=== PATIENT | male | born 1960 | race Caucasian/White ===

== ENCOUNTER 2016-11-27 20:39 | Emergency (ER) | payer OTHER ==
[~2016-11-27] VITALS: Ht 177.8 cm; Wt 70.0 kg
[~2016-11-27 20:39] MED LIST: ASPI81TA82 PO; HYDR-3111 PO; PERC5TAB12 PO; TAMS0.4C67 PO
[2016-11-27 20:45] VITALS: BP 145/92; PULSE 71; RESP 14; TEMP 98.3; O2SAT 100
[2016-11-27 21:00] VITALS: BP 164/96; PULSE 67; RESP 18; O2SAT 99
[2016-11-27] MEDS ORDERED: SODIUM CHLOR 0.9% 1000 ML INJ 1,000 ML IV ONE (21:06)
[2016-11-27 21:08] LABS: BLOOD, URINE LARGE (NEG); GLUCOSE,URINE NEG (NEG); KETONE, URINE NEG (NEG); NITRITE,URINE NEG (NEG); PH, URINE 5.5 (5.0-8.5)
[2016-11-27 21:14] LABS: URINE COLOR YELLOW (YELLW/STRAW)
[2016-11-27 21:15] LABS: MUCUS URINE OCC /lpf (OCC)
[2016-11-27] MEDS ORDERED: PERC5TAB12 PO (21:15)
[2016-11-27] MEDS ORDERED: ONDANSETRON HCL 4 MG/2 ML VIAL IVP ONE (21:15)
[2016-11-27] MEDS ORDERED: KETOROLAC TROMETHAMINE 30 MG/ML (IVP) VIAL IVP ONE (21:15)
[2016-11-27] MEDS ORDERED: TAMS5CAP PO (21:15)
[2016-11-27] MEDS ORDERED: SODIUM CHLORIDE 0.9% FLUSH 10 ML FLUSH IVF PRN (21:15)
[2016-11-27] MEDS ORDERED: ASPI1TAB69 PO (21:15)
[2016-11-27] MEDS ORDERED: HYDROmorphone HCL PF 1 MG/ML VIAL IVS ONE (21:15)
[2016-11-27 21:16] LABS: COMMENT (UR) CULT NOT INDICATED; CULTURE IF INDICATED CULT NOT INDICATED; SQUAMOUS EPITHELIAL CELL URINE 0-5 /hpf (0-5)
[2016-11-27 21:28] LABS: AUTOMATED NEUTROPHIL # 9.9 TH/MM3 (1.8-7.7); BASOPHIL # 0.3 TH/MM3 (0-0.2); BASOPHIL % 1.9 % (0.0-2.0); EOSINOPHIL # 0.2 TH/MM3 (0-0.4); EOSINOPHIL % 1.4 % (0.0-4.0); LYMPH % 19.3 % (9.0-44.0); LYMPHOCYTE # 2.9 TH/MM3 (1.0-4.8); MEAN CELL VOLUME 91.4 FL (80.0-100.0); MEAN CORPUSCULAR HEMOGLOBIN 30.5 PG (27.0-34.0); MEAN CORPUSCULAR HGB CONC 33.3 % (32.0-36.0); MONO % 13.4 % (0.0-8.0); PLATELET COUNT 318 TH/MM3 (150-450); RED BLOOD COUNT 4.38 MIL/MM3 (4.50-5.90); RED CELL DISTRIBUTION WIDTH 13.3 % (11.6-17.2); WHITE BLOOD COUNT 15.3 TH/MM3 (4.0-11.0)
[2016-11-27 21:29] LABS: HEMO FLAGS DIFF FINAL
[2016-11-27 21:41] LABS: POTASSIUM 3.7 MEQ/L (3.5-5.1)
[2016-11-27 21:44] LABS: BICARBONATE 29.7 MEQ/L (21.0-32.0)
--- NOTE | 2016-11-27 21:48 | RADHPO ---
EXAM DATE/TIME: 11/27/2016 21:14 [place] COMPARISON: CT ABDOMEN & PELVIS W/O CONTRAST, November 29, 2015, 5:27. INDICATIONS : Right flank pain. ORAL CONTRAST: No oral contrast ingested. RADIATION DOSE: 9.31 CTDIvol (mGy) MEDICAL HISTORY : None SURGICAL HISTORY : Splenectomy. ENCOUNTER: Initial ACUITY: 1 day PAIN SCALE: 5/10 LOCATION: Right flank TECHNIQUE: Volumetric scanning of the abdomen and pelvis was performed. Using automated exposure control and ad justment of the mA and/or kV according to patient size, radiation dose was kept as low as reasonably achievable to obtain optimal diagnostic quality images. FINDINGS: The lung base is are clear. The liver spleen pancreas and adrenals unremarkable Right kidney: There multiple small 2-3 mm calcifications in the right kidney. There is mild dilatation of the prox imal right ureter with a 3 mm stone at the right ureterovesical junction. There multiple calcifications in the left kidney without perinephric stranding or obstruction. Pelvic contents are otherwise unremarkable. Review of bone windows reveals only degenerative changes. CONCLUSION: 3 mm obstructing stone right ureterovesical junction. Multiple other small 2-3 mm stones are seen in both kidneys.. Jeremias Hill MD FACR on November 27, 2016 at 21:40 Board Certified Radiologist. This report was verified electronically.
[2016-11-27 22:00] VITALS: BP 147/87; PULSE 72; RESP 18; O2SAT 97
[2016-11-27 22:12] VITALS: RESP 17
[2016-11-27] MEDS ORDERED: TAMSULOSIN HCL 0.4 MG CAP PO ONE (22:30)
[2016-11-27] MEDS ORDERED: ZOFR4TAB3 SL (22:31)
[2016-11-27] MEDS ORDERED: PERC7.5T13 PO (22:31)
[2016-11-27] MEDS ORDERED: IBUP-232 PO (22:33)
--- NOTE | 2016-11-27 22:40 | PD ---
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 The patient took some Percocet at home which were left over from his last episode of urinary stones a year ago. He still complains of pain without nausea.. The pain is in the right flank, right UVJ area. He denies any fever. PFSH Past Medical History Diminished Hearing: No Kidney Stones: Yes Immunizations Current: Yes Tetanus Vaccination: > 5 Years Influenza Vaccination: Yes Past Surgical History Other Surgery: Yes (SPLENECTOMY) Social History Alcohol Use: Yes (SOCIAL) Tobacco Use: No Substance Use: No Allergies-Medications (Allergen,Severity, Reaction): Coded Allergies: No Known Allergies (Unverified , 11/27/16) Reported Meds & Prescriptions Reported Meds & Active Scripts Active Ibuprofen 600 Mg Tab 600 Mg PO TID Zofran Odt (Ondansetron Odt) 4 Mg Tab 4 Mg SL Q6HR PRN Percocet (Oxycodone-Acetaminophen) 7.5-325 mg Tab 1 Tab PO Q4H PRN Reported Percocet (Oxycodone-Acetaminophen) 5-325 mg Tab 1 Tab PO Q4H PRN Flomax (Tamsulosin HCl) 0.4 Mg Cap 0.4 Mg PO HS Aspirin 81 Mg Tabdr 81 Mg PO DAILY Review of Systems Except as stated in HPI: all other systems reviewed are Neg Physical Exam Narrative GENERAL: The patient is alert, oriented 3 in moderate apparent distress with his right ureteral stone. His vital signs show blood pressure 145/92 but are otherwise normal. SKIN: Focused skin assessment warm/dry. HEAD: Atraumatic. Normocephalic. EYES: Pupils equal and round. No scleral icterus. No injection or drainage. ENT: No nasal bleeding or discharge. Mucous membranes pink and moist. NECK: Trachea midline. No JVD. CARDIOVASCULAR: Regular rate and rhythm. No murmur appreciated. RESPIRATORY: No accessory muscle use. Clear to auscultation. Breath sounds equal bilaterally. GASTROINTESTINAL: Abdomen soft, with slight tenderness/discomfort over the right UVJ and some minimal discomfort over the right flank to direct palpation, nondistended. Hepatic and splenic margins not palpable. No guarding or rebound is present. MUSCULOSKELETAL: No obvious deformities. No clubbing. No cyanosis. No edema. NEUROLOGICAL: Awake and alert. No obvious cranial nerve deficits. Motor grossly within normal limits. Normal speech. PSYCHIATRIC: Appropriate mood and affect; insight and judgment normal. Data Data Last Documented VS Vital Signs Date Time Temp Pulse Resp B/P Pulse Ox O2 Delivery O2 Flow Rate FiO2 11/27/16 22:12 17 11/27/16 22:00 72 147/87 97 Room Air 11/27/16 20:45 98.3 Orders Urinalysis - C+S If Indicated (11/27/16 20:53) Complete Blood Count With Diff (11/27/16 21:06) Basic Metabolic Panel (Bmp) (11/27/16 21:06) Ct Abd/Pel W/O Iv Contrast (11/27/16 21:06) Ecg Monitoring (11/27/16 21:06) Iv Access Insert/Monitor (11/27/16 21:06) Ketorolac Inj (Toradol Inj) (11/27/16 21:15) Ondansetron Inj (Zofran Inj) (11/27/16 21:15) Sodium Chloride 0.9% Flush (Ns Flush) (11/27/16 21:15) Sodium Chlor 0.9% 1000 Ml Inj (Ns 1000 M (11/27/16 21:06) Hydromorphone Pf Inj (Dilaudid Pf Inj) (11/27/16 21:15) Tamsulosin (Flomax) (11/27/16 22:30) Labs Laboratory Tests Test 11/27/16 11/27/16 21:00 21:15 Urine Color YELLOW Urine Turbidity SLIGHT Urine pH 5.5 Urine Specific [place] 1.009 Urine Protein NEG mg/dL Urine Glucose (UA) NEG mg/dL Urine Ketones NEG mg/dL Urine Occult Blood LARGE Urine Nitrite NEG Urine Bilirubin NEG Urine Leukocyte Esterase NEG Urine RBC 50-99 /hpf Urine WBC 3-5 /hpf Urine Squamous Epithelial 0-5 /hpf Cells Urine Mucus OCC /lpf Microscopic Urinalysis Comment CULT NOT INDICATED White Blood Count 15.3 TH/MM3 Red Blood Count 4.38 MIL/MM3 Hemoglobin 13.4 GM/DL Hematocrit 40.0 % Mean Corpuscular Volume 91.4 FL Mean Corpuscular Hemoglobin 30.5 PG Mean Corpuscular Hemoglobin 33.3 % Concent Red Cell Distribution Width 13.3 % Platelet Count 318 TH/MM3 Mean Platelet Volume 8.2 FL Neutrophils (%) (Auto) 64.0 % Lymphocytes (%) (Auto) 19.3 % Monocytes (%) (Auto) 13.4 % Eosinophils (%) (Auto) 1.4 % Basophils (%) (Auto) 1.9 % Neutrophils # (Auto) 9.9 TH/MM3 Lymphocytes # (Auto) 2.9 TH/MM3 Monocytes # (Auto) 2.0 TH/MM3 Eosinophils # (Auto) 0.2 TH/MM3 Basophils # (Auto) 0.3 TH/MM3 CBC Comment DIFF FINAL Differential Comment Sodium Level 138 MEQ/L Potassium Level 3.7 MEQ/L Chloride Level 101 MEQ/L Carbon Dioxide Level 29.7 MEQ/L Anion Gap 7 MEQ/L Blood Urea Nitrogen 15 MG/DL Creatinine 2.00 MG/DL Estimat Glomerular Filtration 35 ML/MIN Rate Random Glucose 101 MG/DL Calcium Level 8.6 MG/DL MDM Medical Decision Making Medical Screen Exam Complete: Yes Emergency Medical Condition: Yes Medical Record Reviewed: Yes Interpretation(s) The CBC shows a white count of 15,300 but is otherwise unremarkable. The basic metabolic profile shows a creatinine of 2 with GFR 35 but is otherwise normal. The CT scan shows a 3 mm right ureteral stone at the right UVJ. There are several 2-3 mm stones in the right kidney which are nonobstructing. Differential Diagnosis Right ureteral stone, urinary tract infection, cholecystitis, colitis, appendicitisunlikely, infected stone Narrative Course The patient has a right ureteral stone. His creatinine is elevated, possibly because of the obstruction. There is no evidence of infection in the urine or infected stone. Plan: He will be given prescriptions for ibuprofen, Zofran and Percocet. He states he has plenty of Flomax at home. Diagnosis Primary Impression: Right ureteral calculus Additional Instructions: As you already know, drink plenty of liquids and take the Percocet if you need to. I hope this stone has already been passed, you don't have any tenderness in the area any more. It is probably a good idea to check her creatinine to see if it returns to normal. Med/Other Pt SpecificInfo: Prescription(s) given Scripts Ibuprofen 600 Mg [id number] Mg PO TID #33 TAB Ref 0 Prov:Fred Sanchez MD 11/27/16 Ondansetron Odt (Zofran Odt)4 Mg Tab4 Mg SL Q6HR PRN (Nausea/Vomiting) #20 TAB Ref 0 Prov:Fred Sanchez MD 11/27/16 Oxycodone-Acetaminophen (Percocet)7.5-325 mg Tab1 Tab PO Q4H PRN (PAIN) #20 TAB Ref 0 Prov:Fred Sanchez MD 11/27/16 Disposition: 01 DISCHARGE HOME Condition: Stable Fred Sanchez MD November 27, 2016 22:40
[2016-11-27 23:02] VITALS: BP 133/77
== END 2016-11-27 23:06 | disposition home or self-care (01) ==
LOC: PHED 20:39
DX: N20.1 Calculus of ureter (principal); Z87.442 Personal history of urinary calculi
CPT/HCPCS: 74176; 80048; 81001; 85025; 96361; 96374; 96375; 99284; J1170; J1885; J2405; J7030